=== PATIENT | female | born 1955 | race Caucasian/White ===

== ENCOUNTER 2016-04-17 16:44 | Inpatient (IN) ==
[2016-04-17 23:25] LABS: Basophils % 0.5 %; Eosinophils # 0.1 K/mcL (0.0-0.6); Eosinophils % 1.2 %; Hematocrit 30.9 % (35.3-44.9); Hemoglobin 9.7 g/dL (11.5-15.4); Immature Granulocytes % 4.3 % (0-4); Lymphocytes # 1.3 K/mcL (0.6-4.6); Lymphocytes % 22.5 %; Mean Corpuscular HGB Conc 31.4 g/dL (31.6-35.5); Mean Corpuscular Hemoglobin 29.6 pg (28.0-33.3); Mean Corpuscular Volume 94.2 fL (83.0-100.0); Mean Platelet Volume 8.9 fL (9.4-12.4); Monocytes # 0.7 K/mcL (0.0-1.3); Monocytes % 11.4 %; Neutrophils # 3.5 K/mcL (1.6-8.9); Platelet Count 242 K/mcL (140-400); Red Blood Count 3.28 M/mcL (3.82-4.97); Red Cell Distribution Width 13.6 % (11.5-14.5); Segmented Neutrophils % 60.1 %
[2016-04-17] MEDS ORDERED: 0.9 % Sodium Chloride 250 ML IVC ONE (23:34)
[2016-04-17] MEDS ORDERED: Naloxone 0.4 MG/ML INJ IVP PRN (23:48)
[2016-04-17] MEDS: 0.9 % Sodium Chloride 1,000 ML IVC SCH (23:49)
[2016-04-18] MEDS ORDERED: *HR* Dextrose 50 % in Water (Syg) 50 ML SYRINGE IVP PRN (00:22)
[2016-04-18] MEDS ORDERED: Dextrose Gel 15 GM PO PRN ×2 (00:22)
[2016-04-18] MEDS ORDERED: D5% in Water 1,000 ML IV PRN (00:22)
--- NOTE | 2016-04-18 00:27 | Internal Med History&Physical ---
<Adelina Carter - Last Filed: 04/18/16 00:59> Date of Encounter: 04/18/16 Time of Encounter: 22:30 Assessment and Plan (1) Non-STEMI (non-ST elevated myocardial infarction) Current visit: Yes Status: Acute 1 patient's elevated troponin 0.09 continue to elevate to 0.12 -possibly related to hypoxia. Patient does have history of CAD he did have a stent placed in March at [facility] We will continue to cycle cardiac troponins 2 patient is having bleeding from tracheostomy. We will does not initiate heparin at this time. Patient is on Brilinta, we will continue and monitor H&H every 6 hours transfuse as needed 3 we will continue with aspirin brilintal and beta lalo and statin 4 consult cardiology 5 continuous cardiac monitoring (2) Tracheostomy hemorrhage Current visit: Yes Status: Acute 1 patient's trach was dislodged today. Patient normally has 7 tracheostomy tube was replaced with 6 per [facility]. Patient has been experiencing some bleeding since insertion suspect is related to trauma as well as patient is on Proventil into. At present time the bleeding has stopped we will continue to monitor will check H&H every 6 hours and transfuse as needed 2 continue with tracheostomy care, suction every 2 hours 3 titrate oxygen to maintain SPO2 greater than 92% 4 type and screen for PRBCs (3) COPD (chronic obstructive pulmonary disease) Current visit: Yes Status: Acute 11 patient has COPD is oxygen dependent will continue with oxygen maintain SPO2 greater than 92% 2 continue bronchodilators 3 continue Singulair Qualifiers: COPD type: emphysema Emphysema type: unspecified Qualified Code(s): J43.9 - Emphysema, unspecified (4) CKD (chronic kidney disease), stage III Current visit: Yes Status: Acute 1 CK-MB stage III creatinine 1.55 unsure of baseline we will continue to monitor creatinine 2 we will avoid nephrotoxins 3 on's her intake output daily weight (5) Diabetes mellitus Current visit: Yes Status: Acute 1 patient is on metformin at home we will hold oral antidiabetics will place on sliding scales Accu-Cheks before meals and at bedtime goal is the maintain postprandial less than 180 Qualifiers: Diabetes mellitus type: type 2 Diabetes mellitus complication status: with kidney complications Diabetes mellitus complication detail: with chronic kidney disease Diabetes mellitus skilled nursing insulin use: with skilled nursing use Chronic kidney disease stage: stage 3 (moderate) Qualified Code(s): E11.22 - Type 2 diabetes mellitus with diabetic chronic kidney disease; N18.3 - Chronic kidney disease, stage 3 (moderate); 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 Mccartney is a 61 year old female with a past history of CHF COPD diabetes GERD hypertension CAD with stent placement one month ago recent trach placement one month ago. Information obtained from medical records as well as nursing staff due to patient is trached. According to [facility] emergency room records the patient presented to the emergency room after her trach was dislodged and [facility] was unable to replace. Patient's tracheostomy was replaced however her trach was a 7 the only trach available in the ER at that time was 6 which is what was placed. She did have some bruising around the tracheostomy site trach was confirmed placement per chest CT. lab work was obtained and it was noted that her troponin was elevated at 0.09 was noted that she was tachycardic patient was given IV fluids. She was transferred to [facility] for further workup and evaluation. Upon arrival to the nursing unit the patient's sats began to drop 88%, coarse rhonchi heard throughout lung muir copious amounts of blood from tracheostomy. Patient deep suctioned with approximately 200 mL's of bright red blood and return. Stat chest x-ray ordered as well as CBC and type and cross. Heart rate 120s blood pressure was [address] Garza paged to bedside. After suctioning patient's SPO2 improved up to 94%, lung sounds improved. Review chest x-ray with which appeared to be pretty clear. Patient was given fluid bolus. Past Med Surg Social Fam HX - Past Medical History Medical history: CHF, COPD, diabetes, GERD, hypertension Psychiatric history: anxiety, other - Social History Smoking Status: Unknown if ever smoked Alcohol use: none Drug use: none - Additional Family History Additional family history: Unable to review family history due to patient's tracheostomy tube Internal Medicine - H&P: Meds Amlodipine Besylate/Benazepril [Lotrel 10-20 mg Capsule] 1 each PO DAILY [History] Aspirin [Lo-Dose Aspirin EC] 81 mg PO DAILY 04/17/16 [History] Atorvastatin [Lipitor] 40 mg PO HS 04/17/16 [History] Diltiazem HCl [Diltiazem 12Hr ER] 120 mg PO DAILY 04/17/16 [History] Estradiol [Estrace] 1 mg PO DAILY PRN 04/17/16 [History] Famotidine [Heartburn Prevention] 20 mg PO DAILY 04/17/16 [History] Furosemide [Lasix] 40 mg PO DAILY 04/17/16 [History] Glimepiride [Amaryl] 2 mg PO 0800 04/17/16 [History] Guaifenesin [Mucinex] 600 mg PO BID 04/17/16 [History] Insulin LISPRO [HumaLOG] 0 units SQ TIDWM PRN 04/17/16 [History] Levofloxacin [Levaquin] 500 mg PO DAILY 04/17/16 [History] Metformin [Glucophage] 500 mg PO 0800 04/17/16 [History] Metoprolol [Lopressor] 25 mg PO BID 04/17/16 [History] Montelukast [Singulair] 10 mg PO DAILY 04/17/16 [History] Potassium Chloride [K-Tab ER] 40 meq PO DAILY 04/17/16 [History] Quetiapine Fumarate [Quetiapine Fumarate ER] 50 mg PO BID 04/17/16 [History] Theophylline Anhydrous [Frank-24] 400 mg PO BID 04/17/16 [History] Ticagrelor [Brilinta] 90 mg PO BID 04/17/16 [History] Allergies codeine Allergy (Verified 04/17/16 09:32) See Comments unknown Penicillins [PCN] Allergy (Verified 04/17/16 09:32) See Comments unknown ROS unobtainable: other All Systems PM: A 10-system review of systems was performed and is negative for pertinent findings except as documented above in the HPI. Tracheostomy tube - Constitutional Vitals: Temp Pulse Resp BP Pulse Ox 98.8 F 123 25 103/59 100 04/17/16 23:02 04/17/16 19:29 04/17/16 19:29 04/17/16 19:29 04/17/16 19:29 General appearance: Present: A&O X 2, mild distress - Head Head exam: Present: atraumatic, normocephalic - Neck Neck exam general surgery: Present: supple. Absent: lymphadenopathy Additional comments: 1 trachea is midline tracheostomy tube is midline bright red blood from tracheostomy tube however do not see any blood coming from surrounding tube. - Respiratory Respiratory exam: Present: rhonchi. Absent: accessory muscle use, rales, wheezes - Cardiovascular Cardiovascular exam: Present: RRR, +S1, +S2. Absent: diastolic murmur, gallop, rubs, systolic murmur - GI/Abdominal GI/Abdominal exam: Present: normal bowel sounds, soft, no peritoneal signs. Absent: distended, tenderness - Extremities Exam Extremities exam: Present: warm, radial pulses palpable and symetrical. Absent : calf tenderness, cyanotic, pedal edema - Neurological Exam Neurological exam: Present: CN II-XII intact, oriented X3, no focal deficits. Absent: pronater drift, facial droop, speech deficit - Skin Skin exam: Present: dry, intact Internal Med - H&P Results - Labs CBC & Chem 7: 04/17/16 23:17 Labs: Short CBC 04/17/16 Range/Units 23:17 WBC 5.8 (4.3-11.1) K/mcL Hgb 9.7 L (11.5-15.4) g/dL Hct 30.9 L (35.3-44.9) % Plt Count 242 (140-400) K/mcL Neutrophils # 3.5 (1.6-8.9) K/mcL Cardiac Enzymes 04/17/16 Range/Units Unknown Troponin I 0.11 H* (0-0.03) ng/mL Chem-7 from [facility] 04/17/16 10:49 AM sodium 144 potassium 4.8 chloride 95 over 35 BUN 23 creatinine 1.55 GFR 34 glucose 202 BNP 61 - EKG Data EKG shows normal: sinus rhythm Rate: tachycardia - EKG Data EKG comments: 04/18/16 00:[address] Garza - Impressions ITS Impressions Chest X-Ray 04/17/16 22:57 IMPRESSION: 1. Tracheostomy cannula tip projects over the trachea 8.1 cm above the ricci. 2. No acute cardiopulmonary abnormality. D/ / Denver Madrigal MD / Denver Madrigal MD Interpreting Provider: Denver Madrigal MD - Diagnostic Studies CT scan - chest Additional comments: CT scan tracheostomy tube appears appropriately located. Moderate emphysema irregular somewhat nodular pasty C left lower lobe measuring back maximally 1.2 cm some adjacent bronchitic changes could reflect some scarring, but in the setting of emphysema, neoplastic focus can best be excluded. Further evaluation with PET CT versus tissue sampling suggested. In the absence of ear disease continue close follow-up recommendations with repeat CT chest in 2-3 months. Atherosclerosis to include coronary artery disease. Right adrenal adenoma. <Mendy Garza R - Last Filed: 04/18/16 06:19> Date of Encounter: 04/17/16 Internal Medicine - H&P: HPI History of present illness: Ms. Mccartney is a 61 year old female All Systems PM: A 10-system review of systems was performed and is negative for pertinent findings except as documented above in the HPI. - Constitutional Vitals: Temp Pulse Resp BP Pulse Ox 98.8 F 128 25 103/59 100 04/17/16 23:02 04/18/16 00:10 04/17/16 19:29 04/17/16 19:29 04/17/16 19:29 Internal Med - H&P Results - Labs CBC & Chem 7: 04/18/16 05:16 04/18/16 05:16 Labs: Short CBC 04/17/16 Range/Units 23:17 WBC 5.8 (4.3-11.1) K/mcL Hgb 9.7 L (11.5-15.4) g/dL Hct 30.9 L (35.3-44.9) % Plt Count 242 (140-400) K/mcL Neutrophils # 3.5 (1.6-8.9) K/mcL Cardiac Enzymes 04/17/16 Range/Units Unknown Troponin I 0.11 H* (0-0.03) ng/mL - Impressions ITS Impressions Chest X-Ray 04/17/16 22:57 IMPRESSION: 1. Tracheostomy cannula tip projects over the trachea 8.1 cm above the ricci. 2. No acute cardiopulmonary abnormality. D/ / Denver Madrigal MD / Denver Madrigal MD Interpreting Provider: Denver Madrigal MD Chest X-Ray 04/18/16 04:16 IMPRESSION: No acute disease. D/ / Anastacio Tran MD / Anastacio Tran MD Interpreting Provider: Anastacio Tran MD - Attending Attestation I examined this patient and my medical decision-making was reviewed with the Advanced Practice Nurse. I agree with the documented findings, disposition and treatment plan as described except to the extent set forth below. 61 Y/F with h/o coronary stent placement and tracheostomy done in Mar 2016, at [facility]. She was at peripheral ER ([facility]), following dislodgment of [facility] at the prison.She had tracheostomy replaced in the ER. Noted to have troponin of 0.09. Had bleeding in the tracheostomy tube and respiratory distress - which improved after suctioning. No further bleeding, and pt is improved clinically. Will consult Pulmonary / ENT for bleeding at the tracheostomy. Cardiology consult for elevated troponin. Will request medical records from [facility]
[2016-04-18] MEDS ORDERED: Ipratropium/Albuterol Neb 3 ML IH ONE (04:15)
[2016-04-18] MEDS ORDERED: Ipratropium/Albuterol Neb 3 ML ONE (04:18)
[2016-04-18] MEDS: *HR* Ticagrelor 90 MG TABLET PO SCH ×2 (05:24→09:41)
[2016-04-18 05:31] LABS: Hematocrit 32.3 % (35.3-44.9); Hemoglobin 10.1 g/dL (11.5-15.4)
[2016-04-18 05:35] LABS: INR 1.2; Prothrombin Time 12.9 Seconds (9.4-12.1)
[2016-04-18 05:37] LABS: Activated Partial Thrombo Time 33.7 Seconds (26.0-36.0)
[2016-04-18 05:44] LABS: BUN/Creatinine Ratio 17 (6-26); Blood Urea Nitrogen 13 mg/dL (7-20); Calcium 9.2 mg/dL (8.6-10.8); Carbon Dioxide 30 mEq/L (19-29); Chloride 103 mEq/L (98-109); Glucose 171 mg/dL (70-99); Osmolality,Calculated 296 (280-300); Potassium 4.1 mEq/L (3.5-4.5); Sodium 141 mEq/L (136-145); eGFR For African Americans > 60 (> 60); eGFR For Non-African Americans > 60 (> 60)
--- NOTE | 2016-04-18 06:25 | Event Note ---
Date of Encounter: 04/18/16 Time of Encounter: 04:00 Rapid response was called at about 3:53 AM. Patient had significant bleeding at the tracheostomy site, which was bright red. Patient was in significant respiratory distress with the oxygen saturation in the mid 70s. Blood / secretions suctioned. Pt had bag ventilation , with improvement of the sats. Tracheostomy tube was changed to size 8 (size 7 not available and size 6 was not providing seal for ventilation. Pt is started on mechanical ventilation through tracheostomy. I have discussed with the pulmonary/critical care physician civil engineering design draftsperson (Dr Awad), who suggested to consult ENT, for tracheostomy bleed (When informed about no ENT cover, recommended transferring to facility with ENT cover). I have been infected by the pacing center that that is no ENT, at this time started 7 AM. I have spoken to [facility] transfer center - as the patient had tracheostomy done within the last month at [facility] - recommended to discuss with [facility]. Spoken to civil engineering design draftsperson physician (Hospitalist) covering ICU - they do not have ENT cover or in-house Manager Operations Research and hence cannot take the pt. I have re-evaluated the pt at 5 AM - pt is much more settled and respiratory status improved. Will monitor her in ICU and consult ENT at 7AM. Monitor H&H and consider PRBC transfusion as needed.
--- NOTE | 2016-04-18 06:58 | Pulmonology Consult Note ---
<Raudel Holloway - Last Filed: 04/18/16 11:32> Date of Encounter: 04/18/16 Time of Encounter: 06:58 Assessment and Plan (1) Tracheostomy hemorrhage Current Visit: Yes Status: Acute Patient was transferred to [facility] from [facility] due to dislodged tracheostomy. Patient initially from [facility]. Patient experienced bleeding episode after insertion of size 6 trach tube in [facility]. Tracheostomy was suctioned upon arrival to [facility] pulling bright red blood, sats improved after suctioning. Hb stable at 10.1, Hct 32.3, Vitals stable overnight. Continue with tracheostomy care. Continue NPO diet. Contact nursing facility who reports Dr. Black at [facility] completed the tracheostomy placement; however, [facility] does not have a physician by that name. Dr. Madrigal the ENT specialist at [facility] was unable to be contacted by the paging center on multiple occassions. At this time we will transfer the patient to [place] for evaluation by ENT of tracheostomy and proper tube placement. (2) Elevated troponin Current Visit: Yes Status: Acute Patients troponins 0.09, 0.12, 0.11. Possibly related to hypoxia vs anemia due to tracheostomy hemorrhage. EKG in ED revealed sinus tachycardia with incomplete right bundle branch block, rate 129. Aspirin give, Ticagrelor, Metoprolol, and Lipitor. Continue with cardiac monitoring. Cardio seen and evaluated patient. 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 Continue home meds including aspirin, brilinta, beta lalo, and lipitor. History of Present Illness Consult date: 04/18/16 Requesting physician: Adelina Carter Reason for consult: other (Tracheostomy tube bleed) Chief complaint: Tracheostomy tube bleed History of present illness: Ms. Mccartney is a 61 year old female with history of recent tracheostomy placement , CHF, COPD, CAD with stent placement one month ago, diabetes, hypertension, and gerd who presented to [facility] ER after staff at nursing facility noticed the patient's trach was dislodged. In the ED a size 6 trach was placed with CT confirmed placement, though her trach size prior was 7. Lab work revealed troponin elevation of 0.09 and tachycardia. Upon arrival to [facility] nursing unit the patient's sats dropped to 88% coarse rhonchi heard throughout lung muir, and copious amounts of blood was coming from around the tracheostomy. Deep suction pulled about 200mL bright red blood. CXR revealed no acute airspace disease or pneumothorax. After suctioning patient's sats improved to 94% with lung sounds also improved. No transfusions were given. Hb was 9.7, Hct 30.9 at that time. Vitals stable this morning, comfortable on ventilator, Hb 10.1, Hct 32.3 this morning. This morning patient denies fevers, chills, sweats, headaches, dizziness, changes in vision or hearing, nausea, vomiting, chest pain , shortness of breath, abdominal pain, changes in bowels or bladder, weakness, or loss of sensation. Past Med Surg Social Fam HX - Past Medical History Medical history: CHF, COPD, coronary artery disease, diabetes, GERD, hypertension Psychiatric history: anxiety, other - Social History Smoking Status: Unknown if ever smoked Smokeless Tobacco Status: No Alcohol use: none Drug use: none Current living situation: ECF Medications and Allergies Aspirin [Lo-Dose Aspirin EC] 81 mg PO DAILY 04/17/16 [History] Atorvastatin [Lipitor] 40 mg PO HS 04/17/16 [History] Diltiazem HCl [Diltiazem 12Hr ER] 120 mg PO DAILY 04/17/16 [History] Famotidine [Heartburn Prevention] 20 mg PO DAILY 04/17/16 [History] Furosemide [Lasix] 40 mg PO DAILY 04/17/16 [History] Metoprolol [Lopressor] 25 mg PO BID 04/17/16 [History] Montelukast [Singulair] 10 mg PO QPM 04/17/16 [History] Potassium Chloride [K-Tab ER] 40 meq PO DAILY 04/17/16 [History] Ticagrelor [Brilinta] 90 mg PO BID 04/17/16 [History] Dextrose 50 % in Water (Syg) [Dextrose 50% (Syg)] 25 ml IVP AD PRN #0 syringe [Rx] Dextrose Gel [Gluctose] 15 gm PO ONCE PRN #0 gel..gram. 04/18/16 [Rx] Dextrose Gel [Gluctose] 30 gm PO ONCE PRN #0 gel..gram. 04/18/16 [Rx] Glucagon, Human Recombinant [Glucagen] 1 mg IM ONCE PRN #0 vial 04/18/16 [Rx] Guaifenesin [Mucinex] 600 mg PO BID 04/18/16 [History] Insulin LISPRO [HumaLOG] 0 units SQ HS vial 04/18/16 [Rx] Insulin LISPRO [HumaLOG] 0 units SQ TIDAC vial 04/18/16 [Rx] Insulin LISPRO [Humalog] 5 - 12 unit SQ ACHS 04/18/16 [History] Naloxone [Narcan] 0.4 mg IVP Q2MIN PRN #0 inj 04/18/16 [Rx] Quetiapine Fumarate [Seroquel] 50 mg PO BID 04/18/16 [History] Theophylline Anhydrous [Frank-24] 400 mg PO BID 04/18/16 [History] Allergies codeine Allergy (Unknown, Verified 04/18/16 09:58) See Comments UNKNOWN REACTION- LISTED ON PATIENT'S ECF MAR Penicillins [PCN] Allergy (Unknown, Verified 04/18/16 09:58) See Comments UNKNOWN REACTION- LISTED ON PATIENT'S ECF MAR All Systems: A 10-system review of systems was performed and is negative for pertinent findings except as documented above in the HPI. - Constitutional Constitutional: as per HPI, no chills, no fever(s), no headache(s), no weakness - EENT Eyes: as per HPI Ears: as per HPI Nose, mouth and throat: as per HPI, sore throat, no dizziness, no hoarseness - Cardiovascular Cardiovascular: as per HPI, no chest pain, no dyspnea, no palpitations - Respiratory Respiratory: as per HPI, no cough, no dyspnea - Gastrointestinal Gastrointestinal: as per HPI, no abdominal pain, no diarrhea, no heartburn, no nausea, no vomiting - Genitourinary Genitourinary: as per HPI, no dysuria, no flank pain - Musculoskeletal Musculoskeletal: as per HPI, no neck pain - Integumentary Integumentary: as per HPI - Neurological Neurological: as per HPI, no dizziness, no headache(s), no numbness, no weakness Physical Examination Vital Signs: Vital Signs, Last 4 Hours Temp Pulse Resp BP Pulse Ox 04/18/16 06:33 97.6 F 115 30 144/80 74 L 04/18/16 06:01 104 19 92/52 96 04/18/16 05:03 99.4 F 98 22 106/87 96 04/18/16 04:40 16 100 04/18/16 04:20 26 99 General appearance: no acute distress, alert Eyes: nonicteric ENT: oropharynx moist Neck: supple, no lymphadenopathy, no JVD Effort: normal Inspection: normal Auscultation: bilateral: clear, wheezes, other (upper airway rhonchi) Cardiovascular: regular rate and rhythm Gastrointestinal: normoactive bowel sounds, soft, non-tender, non-distended Integumentary: normal, other (multiple ecchymosis noted over bilateral upper extremities) Extremities: no cyanosis, pink and warm, pulses normal, edema (1+ nonpitting lower extremity) Musculoskeletal: no deformities normal mental status, non-focal exam, pupils equal and round, CN II-XII normal, motor strength normal and symmetric mood appropriate, affect normal Ventilator Settings Ventilator Settings: Ventilator Settings, Last 8 Hours Ventilator Mode A/C Ventilator Mode A/C Ventilator Mode VC+ Ventilator Tidal Volume 500 Setting Ventilator Tidal Volume 500 Setting Ventilator Tidal Volume 500 Setting Ventilator Respiratory Rate 12 Setting Ventilator Respiratory Rate 12 Setting Ventilator Respiratory Rate 12 Setting Actual Respiratory Rate 20 Positive End Expiratory 5 Pressure Positive End Expiratory 5 Pressure Positive End Expiratory 5 Pressure Peak Inspiratory Airway 22 Pressure Results - Laboratory Findings CBC and BMP: 04/18/16 10:42 04/18/16 05:16 PT/INR, D-dimer PT 12.9 Seconds (9.4-12.1) H 04/18/16 05:16 Abnormal lab findings: Abnormal lab results RBC 3.28 M/mcL (3.82-4.97) L 04/17/16 23:17 Hgb 10.1 g/dL (11.5-15.4) L 04/18/16 05:16 Hct 32.3 % (35.3-44.9) L 04/18/16 05:16 MCHC 31.4 g/dL (31.6-35.5) L 04/17/16 23:17 MPV 8.9 fL (9.4-12.4) L 04/17/16 23:17 Immature Gran % 4.3 % (0-4) H 04/17/16 23:17 PT 12.9 Seconds (9.4-12.1) H 04/18/16 05:16 Carbon Dioxide 30 mEq/L (19-29) H 04/18/16 05:16 Glucose 171 mg/dL (70-99) H 04/18/16 05:16 POC Glucose 164 (58-89) H 04/18/16 05:04 Troponin I 0.11 ng/mL (0-0.03) H* 04/17/16 Unknown - Clinical Findings Intake & Output: Intake & Output 04/17/16 04/17/16 04/18/16 15:59 23:59 07:59 Intake Total 200 / 200 100 / 100 Output Total 400 / 400 200 / 200 Balance -200 / -200 -100 / -100 Weight 69 kg 72.7 kg Consult Discharge Plan - Plan Referrals: NO,PCP [Primary Care Provider] - <Diego Awad W - Last Filed: 04/18/16 16:46> Date of Encounter: 04/18/16 All Systems: A 10-system review of systems was performed and is negative for pertinent findings except as documented above in the HPI. Physical Examination Vital Signs: Vital Signs, Last 4 Hours Pulse Resp BP Pulse Ox 04/18/16 14:00 70 20 93/56 99 04/18/16 13:00 81 20 101/61 99 Ventilator Settings Ventilator Settings: Ventilator Settings, Last 8 Hours Ventilator Mode A/C Ventilator Mode A/C Ventilator Mode A/C Ventilator Mode A/C Ventilator Tidal Volume 400 Setting Ventilator Tidal Volume 400 Setting Ventilator Tidal Volume 400 Setting Ventilator Tidal Volume 400 Setting Ventilator Respiratory Rate 12 Setting Ventilator Respiratory Rate 12 Setting Ventilator Respiratory Rate 12 Setting Ventilator Respiratory Rate 12 Setting Actual Respiratory Rate 26 Actual Respiratory Rate 26 Actual Respiratory Rate 26 Actual Respiratory Rate 26 Positive End Expiratory 5.0 Pressure Positive End Expiratory 5.0 Pressure Positive End Expiratory 5.0 Pressure Results - Laboratory Findings CBC and BMP: 04/18/16 15:56 04/18/16 05:16 PT/INR, D-dimer PT 12.9 Seconds (9.4-12.1) H 04/18/16 05:16 Abnormal lab findings: Abnormal lab results RBC 3.28 M/mcL (3.82-4.97) L 04/17/16 23:17 Hgb 8.7 g/dL (11.5-15.4) L 04/18/16 15:56 Hct 28.4 % (35.3-44.9) L 04/18/16 15:56 MCHC 31.4 g/dL (31.6-35.5) L 04/17/16 23:17 MPV 8.9 fL (9.4-12.4) L 04/17/16 23:17 Immature Gran % 4.3 % (0-4) H 04/17/16 23:17 PT 12.9 Seconds (9.4-12.1) H 04/18/16 05:16 Carbon Dioxide 30 mEq/L (19-29) H 04/18/16 05:16 Glucose 171 mg/dL (70-99) H 04/18/16 05:16 POC Glucose 93 (58-89) H 04/18/16 15:16 Troponin I 0.05 ng/mL (0-0.03) H* 04/18/16 15:56 B-Natriuretic Peptide 130 pg/mL (0-100) H 04/18/16 15:56 - Clinical Findings Intake & Output: Intake & Output 04/18/16 04/18/16 04/18/16 07:59 15:59 23:59 Intake Total 100 / 100 1220 / 1220 Output Total 200 / 200 0 / 0 Balance -100 / -100 1220 / 1220 Weight 72.7 kg 70.9 kg - Attending Attestation I examined this patient and my medical decision-making was reviewed with the NURSE STAFF/PA/Advanced Practice Nurse/Resident Physician. I agree with the documented findings, disposition and treatment plan as described except to the extent set forth below. Patient with tracheostomy bleed with Trach placement within last month no ENT coverage needs formal ENT evaluation transfer to OSH.
[2016-04-18] MEDS ORDERED: Diltiazem CD (24hr) 120 MG CAPSULE PO SCH (09:00)
[2016-04-18] MEDS ORDERED: THEOPHYLLINE ANHYDROUS 200 MG PO SCH (09:00)
[2016-04-18] MEDS ORDERED: Aspirin Enteric Coated 81 MG Tablet PO SCH (09:00)
[2016-04-18] MEDS ORDERED: Famotidine 20 MG TABLET PO SCH (09:00)
[2016-04-18] MEDS ORDERED: *HR* Ticagrelor 90 MG TABLET PO SCH (09:00)
[2016-04-18] MEDS ORDERED: Furosemide 40 MG TABLET PO SCH (09:00)
[2016-04-18] MEDS: Insulin LISPRO 300 UNITS/3 ML VIAL SQ SCH ×2 (09:46→13:03)
[2016-04-18] MEDS: 0.9 % Sodium Chloride 1,000 ML IVC SCH (09:50)
--- NOTE | 2016-04-18 10:29 | Cardiology Consult Note ---
<Denver Portillo - Last Filed: 04/18/16 10:53> Date of Encounter: 04/18/16 Time of Encounter: 10:26 Assessment and Plan (1) Elevated troponin Current Visit: Yes Status: Acute - history of CAD s/p stents unsure of acuity, per report last month at [facility] - elevated troponin in the setting of hypoxic respiratory failure secondary to dislodged tracheostomy - 0.09 --> 0.12 --> 0.11 - denies chest pain - EKG sinus tachycardia - no heparin, continue home medications including ASA, Brilinta, BB, Lipitor - this is not a NSTEMI - cardiac rehab is not appropriate - continue to monitor H/H, current Hgb 10.1 (9.7) - follow up with your sr account executive as scheduled Cardiology will sign off. Thank you for involving us in her care. Please call for further questions Discussion w patient/family: The assessment and plan as outlined above was discussed with the patient and/or family members who expressed understanding and agreement. All questions were answered. Thank you for involving us in the care of your patient. Please call with any questions. History of Present Illness Consult date: 04/18/16 Requesting physician: Adelina Carter Consult reason: elevated troponin Chief complaint: Respiratory distress, dislodged trach History of present illness: Ms. Mccartney is a 61 year old female with past medical history of CAD s/p stent, tracheostomy placement one month ago, COPD, diabetes, hypertension presents to the ED for a traumatic dislodgement of tracheostomy tube. Cardiology was consulted for elevated troponin. Patient denies any chest pain, palpitations, lightheadedness. Patient is a poor historian however per report she had a recent PCI with stent as she takes Brilinta and ASA on her medications list. CV studies are unavailable in [facility] as she normally receives her care at [facility]. Hgb remains stable 10.1 (9.7). Past Med Surg Social Fam HX - Past Medical History Medical history: CHF, COPD, coronary artery disease, diabetes, GERD, hypertension Psychiatric history: anxiety, other - Social History Smoking Status: Unknown if ever smoked Smokeless Tobacco Status: No Alcohol use: none Drug use: none Medications and Allergies Aspirin [Lo-Dose Aspirin EC] 81 mg PO DAILY 04/17/16 [History] Atorvastatin [Lipitor] 40 mg PO HS 04/17/16 [History] Diltiazem HCl [Diltiazem 12Hr ER] 120 mg PO DAILY 04/17/16 [History] Estradiol [Estrace] 1 mg PO DAILY PRN 04/17/16 [History] Famotidine [Heartburn Prevention] 20 mg PO DAILY 04/17/16 [History] Furosemide [Lasix] 40 mg PO DAILY 04/17/16 [History] Glimepiride [Amaryl] 2 mg PO QAM 04/17/16 [History] Levofloxacin [Levaquin] 500 mg PO QPM 04/17/16 [History] Metformin [Glucophage] 500 mg PO QAM 04/17/16 [History] Metoprolol [Lopressor] 25 mg PO BID 04/17/16 [History] Montelukast [Singulair] 10 mg PO QPM 04/17/16 [History] Potassium Chloride [K-Tab ER] 40 meq PO DAILY 04/17/16 [History] Ticagrelor [Brilinta] 90 mg PO BID 04/17/16 [History] Amlodipine Besylate/Benazepril [Lotrel 5-10 mg Capsule] 1 cap PO DAILY 04/18/16 [History] Guaifenesin [Mucinex] 600 mg PO BID 04/18/16 [History] Insulin LISPRO [Humalog] 5 - 12 unit SQ ACHS 04/18/16 [History] Quetiapine Fumarate [Seroquel] 50 mg PO BID 04/18/16 [History] Theophylline Anhydrous [Frank-24] 400 mg PO BID 04/18/16 [History] Allergies codeine Allergy (Unknown, Verified 04/18/16 09:58) See Comments UNKNOWN REACTION- LISTED ON PATIENT'S ECF MAR Penicillins [PCN] Allergy (Unknown, Verified 04/18/16 09:58) See Comments UNKNOWN REACTION- LISTED ON PATIENT'S ECF MAR All Systems Review: A 10-system review of systems was performed and is negative for pertinent findings except as documented above in the HPI. - Constitutional Constitutional: no weakness - Cardiovascular Cardiovascular: dyspnea at rest, no chest pain at rest, no chest pain with exertion, no lightheadedness, no palpitations, no rapid heart rate - Respiratory Respiratory: cough, dyspnea, wheezing, no hemoptysis Physical Examination Vital Signs, Last 4 Hours Temp Pulse Resp BP Pulse Ox 04/18/16 09:00 100 26 101/58 98 04/18/16 08:00 97.1 F L 110 26 93/66 98 04/18/16 07:35 97.1 F L 04/18/16 07:13 17 96 04/18/16 07:00 101 26 91/57 98 04/18/16 06:33 97.6 F 115 30 144/80 74 L General: Conversant, No Apparent Distress HEENT: Atraumatic, Normocephaly, Mucus Membranes Moist Neck: No JVD, Normal carotid pulses, Other (tracheostomy) Cardiac: Normal S1 and S2, No Murmur, Other (regular rhythm, tachycardic 100s) Lungs: Normal Breath Sounds, Other (bilateral wheezes and rales, likely atelectasis) Neuro: Alert and responsive, No focal deficits noted Abdomen: Soft, Non-Tender Skin: No rashes noted on visualized skin Musculoskeletal: No Chest Wall Tenderness Extremities: No Clubbing, No Cyanosis, No Edema, Normal Pulses Results 04/18/16 10:42 04/18/16 05:16 Lab Results 04/17/16 04/17/16 04/18/16 23:17 Unknown 05:16 WBC 5.8 Hgb 9.7 L 10.1 L Hct 30.9 L 32.3 L Plt Count 242 INR APTT Sodium Potassium Chloride Carbon Dioxide BUN Creatinine Glucose Calcium Troponin I 0.11 H* B-Natriuretic Peptide 04/18/16 04/18/16 04/18/16 05:16 05:16 05:16 WBC Hgb Hct Plt Count INR 1.2 APTT 33.7 Sodium 141 Potassium 4.1 Chloride 103 Carbon Dioxide 30 H BUN 13 D Creatinine 0.75 D Glucose 171 H Calcium 9.2 Troponin I B-Natriuretic Peptide 80 - Imaging and Cardiology Chest Xray: report reviewed (tracheostomy tube in place), image reviewed - EKG Interpretation EKG results cardiology: personally reviewed, sinus rhythm, no diagnostic ischemia, right bundle branch block Consult Discharge Plan - Plan Referrals: NO,PCP [Primary Care Provider] - <Dae Fitch - Last Filed: 04/18/16 11:03> Date of Encounter: 04/18/16 Assessment and Plan Discussion w patient/family: The assessment and plan as outlined above was discussed with the patient and/or family members who expressed understanding and agreement. All questions were answered. Thank you for involving us in the care of your patient. Please call with any questions. History of Present Illness History of present illness: Ms. Mccartney is a 61 year old female All Systems Review: A 10-system review of systems was performed and is negative for pertinent findings except as documented above in the HPI. Physical Examination Vital Signs, Last 4 Hours Temp Pulse Resp BP Pulse Ox 04/18/16 10:00 114 26 118/62 98 04/18/16 09:00 100 26 101/58 98 04/18/16 08:00 97.1 F L 110 26 93/66 98 04/18/16 07:35 97.1 F L 04/18/16 07:13 17 96 Results 04/18/16 10:42 04/18/16 05:16 Lab Results 04/17/16 04/17/16 04/18/16 23:17 Unknown 05:16 WBC 5.8 Hgb 9.7 L 10.1 L Hct 30.9 L 32.3 L Plt Count 242 INR APTT Sodium Potassium Chloride Carbon Dioxide BUN Creatinine Glucose Calcium Troponin I 0.11 H* B-Natriuretic Peptide 04/18/16 04/18/16 04/18/16 05:16 05:16 05:16 WBC Hgb Hct Plt Count INR 1.2 APTT 33.7 Sodium 141 Potassium 4.1 Chloride 103 Carbon Dioxide 30 H BUN 13 D Creatinine 0.75 D Glucose 171 H Calcium 9.2 Troponin I B-Natriuretic Peptide 80 04/18/16 10:42 WBC Hgb 9.5 L Hct 30.1 L Plt Count INR APTT Sodium Potassium Chloride Carbon Dioxide BUN Creatinine Glucose Calcium Troponin I B-Natriuretic Peptide Attestation: My signature below is to certify that this patient is under my care and that I, or nurse practitioner, or a physician's middle school assistant principal working with me, has a face-to -face encounter with this patient. Patient experienced a slight Trop elevation after her Trach became dislodged and experienced some trach site hemorrhage. Patient able to answer some questions regarding her sxs. Denies any anginal type chest pain last night or this morning. None in the past few days. Given that Trops have peaked --no additional CV work up at this time. Continue current CV meds. Based on recent stenting.-Continue ASA and Brilinta. Will sign off, call if other issues arise.
[2016-04-18 10:50] LABS: Hematocrit 30.1 % (35.3-44.9); Hemoglobin 9.5 g/dL (11.5-15.4)
--- NOTE | 2016-04-18 15:28 | Discharge Summary ---
<Raudel Holloway - Last Filed: 04/18/16 15:36> Date of Encounter: 04/18/16 Time of Encounter: 15:26 - Discharge Diagnosis (1) Tracheostomy hemorrhage Priority: Primary Status: Acute Comments: Patient was transferred to [facility] from [place] ED due to dislodged tracheostomy. Patient initially from [facility]. Patient experienced bleeding episode after insertion of size 6 trach tube in [place] ED. Tracheostomy was suctioned upon arrival to [facility] pulling bright red blood, sats improved after suctioning. Hb stable at 9.5, Hct 30.1, Vitals stable overnight. Continue with tracheostomy care. Continue NPO diet except meds and ice chips. Contact nursing facility who reports Dr. Black at [facility] completed the tracheostomy placement; however, [facility] does not have a physician by that name. Dr. Madrigal the ENT specialist at [facility] was unable to be contacted by the paging center on multiple occassions. At this time we will transfer the patient to [place] [facility] for evaluation by ENT of tracheostomy and proper tube placement. [facility] accepted transfer to [facility] group. (2) Elevated troponin Priority: Secondary Status: Acute Comments: Patients troponins 0.09, 0.12, 0.11. Possibly related to hypoxia vs anemia due to tracheostomy hemorrhage. EKG in ED revealed sinus tachycardia with incomplete right bundle branch block, rate 129. Aspirin give, Ticagrelor, Metoprolol, and Lipitor. Continue with cardiac monitoring. Cardio seen and evaluated patient. Recommends routine machine grinder followup and to continue monitoring Hb/Hct. Continue home meds including aspirin, brilinta, beta lalo, and lipitor. (3) COPD (chronic obstructive pulmonary disease) Priority: Secondary Status: Acute Qualifiers: COPD type: emphysema Emphysema type: unspecified Qualified Code(s): J43.9 - Emphysema, unspecified (4) CAD (coronary artery disease) Priority: Secondary Status: Acute Qualifiers: Coronary Disease-Associated Artery/Lesion type: unspecified vessel or lesion type [place] vs. transplanted heart: [place] heart Associated angina: angina presence unspecified Qualified Code(s): I25.10 - Atherosclerotic heart disease of [place] coronary artery without angina pectoris (5) CHF (congestive heart failure) Priority: Secondary Status: Acute Qualifiers: Congestive heart failure type: unspecified congestive heart failure type Congestive heart failure chronicity: chronic Qualified Code(s): I50.9 - Heart failure, unspecified (6) Diabetes mellitus Priority: Secondary Status: Acute Qualifiers: Diabetes mellitus type: type 2 Diabetes mellitus complication status: with kidney complications Diabetes mellitus complication detail: with chronic kidney disease Diabetes mellitus terminal superintendent insulin use: with terminal superintendent use Chronic kidney disease stage: stage 3 (moderate) Qualified Code(s): E11.22 - Type 2 diabetes mellitus with diabetic chronic kidney disease; N18.3 - Chronic kidney disease, stage 3 (moderate); Z79.4 - nursing home (current) use of insulin (7) Hypertension Priority: Secondary Status: Acute Qualifiers: Hypertension type: essential hypertension Qualified Code(s): I10 - Essential (primary) hypertension - Discharge Medications Home Medications: Aspirin [Lo-Dose Aspirin EC] 81 mg PO DAILY 04/17/16 [History] Atorvastatin [Lipitor] 40 mg PO HS 04/17/16 [History] Diltiazem HCl [Diltiazem 12Hr ER] 120 mg PO DAILY 04/17/16 [History] Famotidine [Heartburn Prevention] 20 mg PO DAILY 04/17/16 [History] Furosemide [Lasix] 40 mg PO DAILY 04/17/16 [History] Metoprolol [Lopressor] 25 mg PO BID 04/17/16 [History] Montelukast [Singulair] 10 mg PO QPM 04/17/16 [History] Potassium Chloride [K-Tab ER] 40 meq PO DAILY 04/17/16 [History] Ticagrelor [Brilinta] 90 mg PO BID 04/17/16 [History] Dextrose 50 % in Water (Syg) [Dextrose 50% (Syg)] 25 ml IVP AD PRN #0 syringe [Rx] Dextrose Gel [Gluctose] 15 gm PO ONCE PRN #0 gel..gram. 04/18/16 [Rx] Dextrose Gel [Gluctose] 30 gm PO ONCE PRN #0 gel..gram. 04/18/16 [Rx] Glucagon, Human Recombinant [Glucagen] 1 mg IM ONCE PRN #0 vial 04/18/16 [Rx] Guaifenesin [Mucinex] 600 mg PO BID 04/18/16 [History] Insulin LISPRO [HumaLOG] 0 units SQ HS vial 04/18/16 [Rx] Insulin LISPRO [HumaLOG] 0 units SQ TIDAC vial 04/18/16 [Rx] Insulin LISPRO [Humalog] 5 - 12 unit SQ ACHS 04/18/16 [History] Naloxone [Narcan] 0.4 mg IVP Q2MIN PRN #0 inj 04/18/16 [Rx] Quetiapine Fumarate [Seroquel] 50 mg PO BID 04/18/16 [History] Theophylline Anhydrous [Frank-24] 400 mg PO BID 04/18/16 [History] Allergies/Adverse Reactions: Allergies codeine Allergy (Unknown, Verified 04/18/16 09:58) See Comments UNKNOWN REACTION- LISTED ON PATIENT'S ECF MAR Penicillins [PCN] Allergy (Unknown, Verified 04/18/16 09:58) See Comments UNKNOWN REACTION- LISTED ON PATIENT'S ECF MAR Labs on day of discharge: Labs from last 24 hours 04/18/16 04/18/16 04/18/16 15:16 11:52 10:42 WBC RBC Hgb 9.5 L Hct 30.1 L MCV MCH MCHC RDW Plt Count MPV Immature Gran % Seg Neutrophils % Lymphocytes % Monocytes % Eosinophils % Basophils % Neutrophils # Lymphocytes # Monocytes # Eosinophils # Basophils # PT INR APTT Sodium Potassium Chloride Carbon Dioxide BUN Creatinine Est GFR ( Amer) Est GFR (Non-Af Amer) BUN/Creatinine Ratio Glucose POC Glucose 93 H 99 H Calculated Osmolality Calcium Troponin I B-Natriuretic Peptide Blood Type Antibody Screen 04/18/16 04/18/16 04/18/16 07:39 05:16 05:16 WBC RBC Hgb Hct MCV MCH MCHC RDW Plt Count MPV Immature Gran % Seg Neutrophils % Lymphocytes % Monocytes % Eosinophils % Basophils % Neutrophils # Lymphocytes # Monocytes # Eosinophils # Basophils # PT INR APTT Sodium Potassium Chloride Carbon Dioxide BUN Creatinine Est GFR ( Amer) Est GFR (Non-Af Amer) BUN/Creatinine Ratio Glucose POC Glucose 151 H Calculated Osmolality Calcium Troponin I 0.08 H* B-Natriuretic Peptide 80 Blood Type Antibody Screen 04/18/16 04/18/16 04/18/16 05:16 05:16 05:16 WBC RBC Hgb 10.1 L Hct 32.3 L MCV MCH MCHC RDW Plt Count MPV Immature Gran % Seg Neutrophils % Lymphocytes % Monocytes % Eosinophils % Basophils % Neutrophils # Lymphocytes # Monocytes # Eosinophils # Basophils # PT 12.9 H INR 1.2 APTT 33.7 Sodium 141 Potassium 4.1 Chloride 103 Carbon Dioxide 30 H BUN 13 D Creatinine 0.75 D Est GFR ( Amer) > 60 Est GFR (Non-Af Amer) > 60 BUN/Creatinine Ratio 17 Glucose 171 H POC Glucose Calculated Osmolality 296 Calcium 9.2 Troponin I B-Natriuretic Peptide Blood Type Antibody Screen 04/18/16 04/17/16 04/17/16 05:04 Unknown 23:17 WBC RBC Hgb Hct MCV MCH MCHC RDW Plt Count MPV Immature Gran % Seg Neutrophils % Lymphocytes % Monocytes % Eosinophils % Basophils % Neutrophils # Lymphocytes # Monocytes # Eosinophils # Basophils # PT INR APTT Sodium Potassium Chloride Carbon Dioxide BUN Creatinine Est GFR ( Amer) Est GFR (Non-Af Amer) BUN/Creatinine Ratio Glucose POC Glucose 164 H Calculated Osmolality Calcium Troponin I 0.11 H* B-Natriuretic Peptide Blood Type O POSITIVE Antibody Screen NEGATIVE 04/17/16 23:17 WBC 5.8 RBC 3.28 L Hgb 9.7 L Hct 30.9 L MCV 94.2 MCH 29.6 MCHC 31.4 L RDW 13.6 Plt Count 242 MPV 8.9 L Immature Gran % 4.3 H Seg Neutrophils % 60.1 Lymphocytes % 22.5 Monocytes % 11.4 Eosinophils % 1.2 Basophils % 0.5 Neutrophils # 3.5 Lymphocytes # 1.3 Monocytes # 0.7 Eosinophils # 0.1 Basophils # 0.0 PT INR APTT Sodium Potassium Chloride Carbon Dioxide BUN Creatinine Est GFR ( Amer) Est GFR (Non-Af Amer) BUN/Creatinine Ratio Glucose POC Glucose Calculated Osmolality Calcium Troponin I B-Natriuretic Peptide Blood Type Antibody Screen - Impressions ITS Impressions Chest X-Ray 04/17/16 22:57 IMPRESSION: 1. Tracheostomy cannula tip projects over the trachea 8.1 cm above the ricci. 2. No acute cardiopulmonary abnormality. D/ / Denver Madrigal MD / Denver Madrigal MD Interpreting Provider: Denver Madrigal MD Chest X-Ray 04/18/16 04:16 IMPRESSION: No acute disease. D/ / Anastacio Tran MD / Aanstacio Tran MD Interpreting Provider: Anastacio Tran MD Date of admission: 04/17/16 23:48 Primary care physician: PCP NO Consults: 04/17/16 23:41 Consult to Pulmonology [CONS] Routine Consulting Provider: Pulm [facility] [place] Reason for Consult: bleeding, from trach tube Time Notified: 23:44 Call Completed: No 04/17/16 23:46 Consult to Cardiology [CONS] Routine Comment: Consulting Provider: Cardiology [place] Reason for Consult: NSTEMI Time Notified: 23:47 Call Completed: No Discharging clinician: Diego Awad ([facility]) Anticipated date of discharge: 04/18/16 - Patient Status Disposition: Transfer Short-Term Hosp Condition: Fair Functional capacity at discharge: bed bound Overall status at discharge: patient is not back to baseline - Discharge Instructions Follow Up With: NO,PCP [Primary Care Provider] - - Diet and Activity Activity: increase activity as tolerated Diet: other (NPO with meds and ice chips) - Hospital Course Hospital course: Ms. Mccartney is a 61 year old female Time spent discussing smoking cessation with patient: 3 to 10 minutes - Time Spent with Patient Total time spent providing and/or coordinating discharge services: Less than 30 minutes Physical Examination Vital Signs: Vital Signs, Last 4 Hours Temp Pulse Resp BP Pulse Ox 04/18/16 14:00 70 20 93/56 99 04/18/16 13:00 81 20 101/61 99 04/18/16 12:00 98.2 F 97 24 85/49 97 General appearance: no acute distress, alert, other (tracheostomy in place, attached to ventilator) Eyes: nonicteric ENT: oropharynx moist Neck: supple, no lymphadenopathy, no JVD Effort: normal Inspection: normal Auscultation: bilateral: diminished breath sounds, wheezes Cardiovascular: regular rate and rhythm Gastrointestinal: normoactive bowel sounds, soft, non-tender, non-distended Integumentary: normal, other (multiple ecchymosis over upper extremities bilaterally) Extremities: no cyanosis, pink and warm, pulses normal, edema (1+ nonpitting lower extremity) Musculoskeletal: no deformities normal mental status, non-focal exam, pupils equal and round, CN II-XII normal, motor strength normal and symmetric mood appropriate, affect normal <Diego Awad W - Last Filed: 04/18/16 16:46> Date of Encounter: 04/18/16 Labs on day of discharge: Labs from last 24 hours 04/18/16 04/18/16 04/18/16 15:56 15:56 15:56 WBC RBC Hgb 8.7 L Hct 28.4 L MCV MCH MCHC RDW Plt Count MPV Immature Gran % Seg Neutrophils % Lymphocytes % Monocytes % Eosinophils % Basophils % Neutrophils # Lymphocytes # Monocytes # Eosinophils # Basophils # PT INR APTT Sodium Potassium Chloride Carbon Dioxide BUN Creatinine Est GFR ( Amer) Est GFR (Non-Af Amer) BUN/Creatinine Ratio Glucose POC Glucose Calculated Osmolality Calcium Troponin I 0.05 H* B-Natriuretic Peptide 130 H Blood Type Antibody Screen 04/18/16 04/18/16 04/18/16 15:16 11:52 10:42 WBC RBC Hgb 9.5 L Hct 30.1 L MCV MCH MCHC RDW Plt Count MPV Immature Gran % Seg Neutrophils % Lymphocytes % Monocytes % Eosinophils % Basophils % Neutrophils # Lymphocytes # Monocytes # Eosinophils # Basophils # PT INR APTT Sodium Potassium Chloride Carbon Dioxide BUN Creatinine Est GFR ( Amer) Est GFR (Non-Af Amer) BUN/Creatinine Ratio Glucose POC Glucose 93 H 99 H Calculated Osmolality Calcium Troponin I B-Natriuretic Peptide Blood Type Antibody Screen 04/18/16 04/18/16 04/18/16 07:39 05:16 05:16 WBC RBC Hgb Hct MCV MCH MCHC RDW Plt Count MPV Immature Gran % Seg Neutrophils % Lymphocytes % Monocytes % Eosinophils % Basophils % Neutrophils # Lymphocytes # Monocytes # Eosinophils # Basophils # PT INR APTT Sodium Potassium Chloride Carbon Dioxide BUN Creatinine Est GFR ( Amer) Est GFR (Non-Af Amer) BUN/Creatinine Ratio Glucose POC Glucose 151 H Calculated Osmolality Calcium Troponin I 0.08 H* B-Natriuretic Peptide 80 Blood Type Antibody Screen 04/18/16 04/18/16 04/18/16 05:16 05:16 05:16 WBC RBC Hgb 10.1 L Hct 32.3 L MCV MCH MCHC RDW Plt Count MPV Immature Gran % Seg Neutrophils % Lymphocytes % Monocytes % Eosinophils % Basophils % Neutrophils # Lymphocytes # Monocytes # Eosinophils # Basophils # PT 12.9 H INR 1.2 APTT 33.7 Sodium 141 Potassium 4.1 Chloride 103 Carbon Dioxide 30 H BUN 13 D Creatinine 0.75 D Est GFR ( Amer) > 60 Est GFR (Non-Af Amer) > 60 BUN/Creatinine Ratio 17 Glucose 171 H POC Glucose Calculated Osmolality 296 Calcium 9.2 Troponin I B-Natriuretic Peptide Blood Type Antibody Screen 04/18/16 04/17/16 04/17/16 05:04 Unknown 23:17 WBC RBC Hgb Hct MCV MCH MCHC RDW Plt Count MPV Immature Gran % Seg Neutrophils % Lymphocytes % Monocytes % Eosinophils % Basophils % Neutrophils # Lymphocytes # Monocytes # Eosinophils # Basophils # PT INR APTT Sodium Potassium Chloride Carbon Dioxide BUN Creatinine Est GFR ( Amer) Est GFR (Non-Af Amer) BUN/Creatinine Ratio Glucose POC Glucose 164 H Calculated Osmolality Calcium Troponin I 0.11 H* B-Natriuretic Peptide Blood Type O POSITIVE Antibody Screen NEGATIVE 04/17/16 23:17 WBC 5.8 RBC 3.28 L Hgb 9.7 L Hct 30.9 L MCV 94.2 MCH 29.6 MCHC 31.4 L RDW 13.6 Plt Count 242 MPV 8.9 L Immature Gran % 4.3 H Seg Neutrophils % 60.1 Lymphocytes % 22.5 Monocytes % 11.4 Eosinophils % 1.2 Basophils % 0.5 Neutrophils # 3.5 Lymphocytes # 1.3 Monocytes # 0.7 Eosinophils # 0.1 Basophils # 0.0 PT INR APTT Sodium Potassium Chloride Carbon Dioxide BUN Creatinine Est GFR ( Amer) Est GFR (Non-Af Amer) BUN/Creatinine Ratio Glucose POC Glucose Calculated Osmolality Calcium Troponin I B-Natriuretic Peptide Blood Type Antibody Screen - Impressions ITS Impressions Chest X-Ray 04/17/16 22:57 IMPRESSION: 1. Tracheostomy cannula tip projects over the trachea 8.1 cm above the ricci. 2. No acute cardiopulmonary abnormality. D/ / Denver Madrigal MD / Denver Madrigal MD Interpreting Provider: Denver Madrigal MD Chest X-Ray 04/18/16 04:16 IMPRESSION: No acute disease. D/ / Anastacio Tran MD / Anastacio Tran MD Interpreting Provider: Anastacio Tran MD Date of admission: 04/17/16 23:48 Primary care physician: PCP NO Consults: 04/17/16 23:41 Consult to Pulmonology [CONS] Routine Consulting Provider: Pulm Crit [facility] [place] Reason for Consult: bleeding, from trach tube Time Notified: 23:44 Call Completed: No 04/17/16 23:46 Consult to Cardiology [CONS] Routine Comment: Consulting Provider: Cardiology [place] Reason for Consult: NSTEMI Time Notified: 23:47 Call Completed: No - Hospital Course Hospital course: Ms. Mccartney is a 61 year old female - Time Spent with Patient Total time spent providing and/or coordinating discharge services: Physical Examination Vital Signs: Vital Signs, Last 4 Hours Pulse Resp BP Pulse Ox 04/18/16 14:00 70 20 93/56 99 04/18/16 13:00 81 20 101/61 99 - Attending Attestation I examined this patient and my medical decision-making was reviewed with the CAGE LOADER/PA/Advanced Practice Nurse/Resident Physician. I agree with the documented findings, disposition and treatment plan as described except to the extent set forth below. transferred to be evaluated by ENT as service not available
[2016-04-18 16:03] LABS: Hematocrit 28.4 % (35.3-44.9); Hemoglobin 8.7 g/dL (11.5-15.4)
[2016-04-18 16:55] VITALS: BP 95/58
[2016-04-18] MEDS ORDERED: Insulin LISPRO 300 UNITS/3 ML VIAL SQ SCH (21:00)
== END 2016-04-18 16:50 | disposition short-term general hospital (02) | DRG 143 ==
LOC: 2NNU → ICNU 04-18 04:42
PROVIDERS: ADMIT Family Medicine; ATTEND Internal Medicine